=== PATIENT | male | born 1990 | race Caucasian/White ===

== ENCOUNTER 2022-10-23 14:09 | Inpatient (IN) | payer OTHER ==
[2022-10-23] MEDS ORDERED: ACETAMINOPHEN 1000 MG/100 ML BAG IVPB ONE (14:37)
[2022-10-23] MEDS ORDERED: ACETAMINOPHEN INJECTION 100 ML IVPB ONE (14:39)
[2022-10-23 15:12] LABS: HEMATOCRIT 37.3 % (35.4-49); HEMOGLOBIN 13.2 G/dL (11.7-16.9); MCH 29.1 pg (25.7-33.7); MCHC 35.3 g/dl (32.0-35.9); MEAN CELL VOLUME 82.3 fl (80-96); MEAN PLT VOLUME 7.6 fl (7.5-11.1); PLATELET COUNT 273.2 10^3/uL (134-434); RBC 4.53 10^6/uL (4.00-5.60); RDW 13.8 % (11.9-15.9); WHITE BLOOD COUNT 14.1 10^3/uL (4.0-10.8)
[2022-10-23 15:38] LABS: ALBUMIN 3.5 g/dl (3.4-5.0); CALCIUM 8.5 mg/dl (8.5-10); TOT PROT 6.8 g/dl (6.4-8.2)
[2022-10-23] MEDS ORDERED: PIPERACILLIN/TAZOBACTAM 4.5 GM VIAL IVPB ONE (16:37)
[2022-10-23 17:13] LABS: EPITHELIAL CELLS RARE /hpf
[2022-10-23 17:22] LABS: PLATELET ESTIMATE ADEQUATE
[2022-10-23] MEDS ORDERED: KETOROLAC TROMETHAMINE 30 MG/1 ML VIAL IVPUSH PRN (18:03)
[2022-10-23] MEDS ORDERED: oxyCODONE HCL 5 MG TABLET ONE (18:45)
[2022-10-23] MEDS: oxyCODONE HCL 5 MG TABLET PO PRN (18:48)
[2022-10-23 19:00] LABS: INR 1.37 (0.83-1.09); PROTHROMBIN TIME (PATIENT) 15.8 SEC (9.7-13.0)
[2022-10-23 19:03] LABS: ACTIVATED PTT 28.3 SECONDS (25.2-36.5)
[2022-10-23 20:56] VITALS: BMI 35.5
[2022-10-23] MEDS: MELATONIN 5 MG TABLETS PO PRN (23:13)
[2022-10-23] MEDS: DOCUSATE SODIUM 100 MG CAPSULE (FP) PO SCH (23:13)
[2022-10-23] MEDS: ACETAMINOPHEN 325 MG TABLET (FP) PO PRN (23:57)
[2022-10-24] MEDS: PIPERACILLIN/TAZOB 3.375 GM 3.375 GM in DEXTROSE 5%-WATER - 50 ML IVPB SCH ×4 (03:40→12:38)
[2022-10-24] MEDS: DOCUSATE SODIUM 100 MG CAPSULE (FP) PO SCH ×3 (06:35→21:01)
[2022-10-24] MEDS: oxyCODONE HCL 5 MG TABLET PO PRN ×2 (06:40→12:44)
[2022-10-24] MEDS: ACETAMINOPHEN 325 MG TABLET (FP) PO PRN ×3 (07:51→21:00)
[2022-10-24] MEDS ORDERED: POTASSIUM CHLORIDE TABS 20 MEQ TABLET.ER (FP) PO ONE (08:46)
[2022-10-24 09:26] LABS: ALBUMIN 3.2 g/dl (3.4-5.0); BILIRUBIN,TOTAL 1.2 mg/dl (0.2-1); CALCIUM 8.4 mg/dl (8.5-10); CREATININE 0.9 mg/dl (0.55-1.3); TOT PROT 6.4 g/dl (6.4-8.2)
[2022-10-24 10:03] LABS: HEMATOCRIT 36.4 % (35.4-49); HEMOGLOBIN 12.6 G/dL (11.7-16.9); MCH 28.8 pg (25.7-33.7); MCHC 34.6 g/dl (32.0-35.9); MEAN PLT VOLUME 8.3 fl (7.5-11.1); PLATELET COUNT 279.6 10^3/uL (134-434); RBC 4.38 10^6/uL (4.00-5.60); RDW 14.2 % (11.9-15.9); WHITE BLOOD COUNT 10.4 10^3/uL (4.0-10.8)
[2022-10-24] MEDS: PANTOPRAZOLE 40 MG TABLET PO SCH (10:48)
[2022-10-24] MEDS: VALSARTAN 160 MG TABLET PO SCH (10:48)
[2022-10-24 12:39] LABS: PLATELET ESTIMATE ADEQUATE
[2022-10-24] MEDS: LACTATED RINGERS SOLUTION 1,000 ML/1,000 ML INFUS.BAG IV SCH (12:47)
[2022-10-24] MEDS: morphine SULFATE 4 MG/ML VIAL IVPUSH PRN (18:30)
[2022-10-24] MEDS: PIPERACILLIN/TAZOB 4.5 GM 4.5 GM in DEXTROSE 5%-WATER 100 ML IVPB SCH (19:47)
[2022-10-24] MEDS: MELATONIN 5 MG TABLETS PO PRN (21:01)
[2022-10-25] MEDS: PIPERACILLIN/TAZOB 4.5 GM 4.5 GM in DEXTROSE 5%-WATER 100 ML IVPB SCH ×3 (02:47→19:03)
[2022-10-25] MEDS: DOCUSATE SODIUM 100 MG CAPSULE (FP) PO SCH ×3 (06:24→21:11)
[2022-10-25] MEDS: ACETAMINOPHEN 325 MG TABLET (FP) PO PRN ×3 (06:24→20:11)
[2022-10-25 08:26] LABS: ALBUMIN 2.8 g/dl (3.4-5.0); CREATININE 0.9 mg/dl (0.55-1.3); TOT PROT 5.9 g/dl (6.4-8.2)
[2022-10-25] MEDS: morphine SULFATE 4 MG/ML VIAL IVPUSH PRN ×2 (10:00→14:36)
[2022-10-25] MEDS: PANTOPRAZOLE 40 MG TABLET PO SCH (10:34)
[2022-10-25 11:33] LABS: BASO % 0.3 % (0-2.0); EOS % 0.2 % (0-4.5); HEMATOCRIT 35.8 % (35.4-49); HEMOGLOBIN 11.9 GM/dL (11.7-16.9); LYMPH % 12.7 % (8-40); MCHC 33.2 g/dl (32.0-35.9); MEAN CELL VOLUME 81.4 fl (80-96); MEAN PLT VOLUME 8.4 fl (7.5-11.1); MONO % 12.1 % (3.8-10.2); NEUT % 74.7 % (42.8-82.8); PLATELET COUNT 296 10^3/uL (134-434); RBC 4.39 M/mm3 (4.00-5.60); WHITE BLOOD COUNT 8.6 K/mm3 (4.0-10.0)
[2022-10-25] MEDS: LACTATED RINGERS SOLUTION 1,000 ML/1,000 ML INFUS.BAG IV SCH ×2 (12:15→13:47)
[2022-10-25] MEDS ORDERED: POTASSIUM CHLORIDE TABS 10 MEQ TABLET.ER (FP) PO ONE (13:53)
[2022-10-26] MEDS: PIPERACILLIN/TAZOB 4.5 GM 4.5 GM in DEXTROSE 5%-WATER 100 ML IVPB SCH ×3 (01:59→17:50)
[2022-10-26] MEDS: DOCUSATE SODIUM 100 MG CAPSULE (FP) PO SCH ×3 (06:27→22:09)
[2022-10-26 08:49] LABS: ALBUMIN 3.2 g/dl (3.4-5.0); BILIRUBIN,TOTAL 0.8 mg/dl (0.2-1); CALCIUM 8.6 mg/dl (8.5-10); CREATININE 0.9 mg/dl (0.55-1.3); MAGNESIUM 2.1 mg/dL (1.8-2.4); TOT PROT 6.7 g/dl (6.4-8.2)
[2022-10-26] MEDS: PANTOPRAZOLE 40 MG TABLET PO SCH (09:07)
[2022-10-26] MEDS: VALSARTAN 160 MG TABLET PO SCH (09:11)
[2022-10-26] MEDS: LACTATED RINGERS SOLUTION 1,000 ML/1,000 ML INFUS.BAG IV SCH (12:18)
[2022-10-26 13:26] LABS: HEMATOCRIT 39.8 % (35.4-49); HEMOGLOBIN 13.5 GM/dL (11.7-16.9); MCH 27.8 pg (25.7-33.7); MEAN PLT VOLUME 8.2 fl (7.5-11.1); PLATELET COUNT 379 10^3/uL (134-434); RBC 4.85 M/mm3 (4.00-5.60); RDW 13.9 % (11.9-15.9); WHITE BLOOD COUNT 6.3 K/mm3 (4.0-10.0)
[2022-10-26] MEDS: ACETAMINOPHEN 325 MG TABLET (FP) PO PRN (21:57)
[2022-10-27] MEDS: PIPERACILLIN/TAZOB 4.5 GM 4.5 GM in DEXTROSE 5%-WATER 100 ML IVPB SCH ×3 (01:47→18:13)
[2022-10-27] MEDS: DOCUSATE SODIUM 100 MG CAPSULE (FP) PO SCH ×3 (06:06→21:13)
[2022-10-27] MEDS: PANTOPRAZOLE 40 MG TABLET PO SCH (09:38)
[2022-10-27] MEDS: VALSARTAN 160 MG TABLET PO SCH (09:38)
[2022-10-28] MEDS: PIPERACILLIN/TAZOB 4.5 GM 4.5 GM in DEXTROSE 5%-WATER 100 ML IVPB SCH ×2 (02:45→09:30)
[2022-10-28] MEDS: LACTATED RINGERS SOLUTION 1,000 ML/1,000 ML INFUS.BAG IV SCH (04:33)
[2022-10-28] MEDS: DOCUSATE SODIUM 100 MG CAPSULE (FP) PO SCH ×2 (05:55→13:27)
[2022-10-28 06:58] VITALS: RESP 18
[2022-10-28] MEDS: PANTOPRAZOLE 40 MG TABLET PO SCH (09:30)
[2022-10-28] MEDS: VALSARTAN 160 MG TABLET PO SCH (09:30)
[2022-10-28 09:54] VITALS: BP 116/67; PULSE 78; TEMP 98
== END 2022-10-28 13:46 | disposition home or self-care (01) | DRG 872 ==
LOC: FER 14:09 → FM/S 18:04 → INTOOBSV 18:04 → OBSVTOIN 10-25 15:33
PROVIDERS: ADMIT Family Medicine; ATTEND Family Medicine
PROC: 0D9P3ZX Drainage of Rectum, Percutaneous Approach, Diagnostic (ICD-10-PCS; principal; 2022-10-24)
DX: A41.9 Sepsis, unspecified organism (principal); K61.1 Rectal abscess; R50.9 Fever, unspecified; D72.829 Elevated white blood cell count, unspecified; I10 Essential (primary) hypertension; B96.1 Klebsiella pneumoniae [K. pneumoniae] as the cause of diseases classified elsewhere; B95.1 Streptococcus, group B, as the cause of diseases classified elsewhere
CPT/HCPCS: 0241U-QW; 36415; 72193-TC; 80053; 81003; 81015; 83735; 85025; 85027; 85610; 85730; 86850; 86900; 86901; 87040; 87070; 87086; 87186; 87205; 99285-25; G0378; Q9967

== ENCOUNTER 2025-04-05 06:07 | Day surgery (SDC) | payer OTHER ==
[2025-04-05] MEDS ORDERED: LIDOCAINE HCL/PF 1% SDV 5ML VIAL ONE (07:22)
[2025-04-05] MEDS ORDERED: DEXAMETHASONE SOD PHOSPHATE 10 MG/1 ML VIAL ONE (07:22)
[2025-04-05] MEDS ORDERED: ACETAMINOPHEN 500 MG TABLET (FP) PO PRN (08:46)
[2025-04-05] MEDS: LIDOCAINE 1% P/F 10 MG/ML VIAL INF ONE ×2 (09:59)
[2025-04-05] MEDS: IOHEXOL 180 MG/1 ML ML IJ ONE ×2 (09:59)
[2025-04-05] MEDS: DEXAMETHASONE SOD PHOSPHATE 10 MG/1 ML VIAL IVPUSH ONE ×2 (09:59)
[2025-04-05 10:39] VITALS: BP 119/80; PULSE 84; RESP 18; TEMP 98.1
== END 2025-04-05 10:15 | disposition home or self-care (01) ==
LOC: JASU-SURG 06:07
PROVIDERS: ATTEND Pain Medicine Pain Medicine
PROC: 3E0R3BZ Introduction of Anesthetic Agent into Spinal Canal, Percutaneous Approach (ICD-10-PCS; 2025-04-05)
PROC: 3E0R33Z Introduction of Anti-inflammatory into Spinal Canal, Percutaneous Approach (ICD-10-PCS; principal; 2025-04-05 08:15)
DX: M54.16 Radiculopathy, lumbar region (principal)
CPT/HCPCS: 76000-TC-FY; J1100